=== PATIENT | male | born 1930 | race Caucasian/White ===

== ENCOUNTER 2018-08-27 20:17 | Inpatient (IN) | payer OTHER, BC ==
[~2018-08-27] VITALS: Ht 180.3 cm; Wt 60.3 kg
[~2018-08-27 20:17] MED LIST: ASPIR 8181 MG PO; ATORVASTATIN CA40 MG PO; BRILINTA90 MG PO; CARVEDILOL3.125 MG PO; CENTRUM SILVER1 EAC2 PO; CITRATE OF MAG296 M1 PO; FISH OIL 1,001000 M2 PO; PLAVIX 75 MG TA75 MG PO; UNICOMPLEX M TA1 TA1 PO; VITAMIN D3400 UNI1 PO
[2018-08-27 20:19] VITALS: BP 112/63
[2018-08-27] MEDS ORDERED: PAXIL10 MG PO (20:36)
[2018-08-27 21:01] LABS: ABSOLUTE NEUTROPHILS 3.5 thou/uL (1.4-8.2); BASOPHILS 0.6 % (0.0-2.0); EOSINOPHILS 2.7 % (0.0-3.0); HEMATOCRIT 36.7 % (42.0-52.0); HEMOGLOBIN 12.2 gm/dL (14.0-18.0); LYMPHOCYTES 29.4 % (24.0-44.0); MCH 28.3 pg (26.0-34.0); MCHC 33.3 g/dL (28.0-37.0); MCV 85.1 fL (80.0-100.0); MONOCYTES 9.3 % (1.0-8.0); PLATELET COUNT 208 thou/uL (150-400); RBC 4.32 mil/uL (4.50-6.00); RDW 15.8 % (10.5-14.5); WBC 6.1 thou/uL (4.0-11.0)
[2018-08-27 21:05] LABS: CALCIUM 9.1 mg/dL (8.5-10.1)
[2018-08-27 21:12] LABS: ALBUMIN 3.6 g/dL (3.4-5.0); TOTAL BILIRUBIN 0.5 mg/dL (<0.1-1.0); TOTAL PROTEIN 7.1 g/dL (6.4-8.2)
[2018-08-27 21:42] LABS: URINE BILIRUBIN NEGATIVE (Negative); URINE BLOOD NEGATIVE (Negative); URINE CLARITY CLEAR; URINE COLOR YELLOW; URINE GLUCOSE-RANDOM* NEGATIVE (Negative); URINE KETONES TRACE (Negative); URINE LEUKOCYTES-REFLEX NEGATIVE (Negative); URINE NITRITE-REFLEX NEGATIVE (Negative); URINE PROTEIN (DIPSTICK) NEGATIVE (Negative); URINE SPECIFIC GRAVITY 1.025 (1.005-1.035)
[2018-08-27 22:32] VITALS: BP 107/61
[2018-08-27 23:01] VITALS: BP 133/72
--- NOTE | 2018-08-28 00:51 | NUR ---
ARRIVED ON THE FLOOR FROM ED @ 23:15. ADMISSION AND ASSESSMENT COMPLETE. VSS HEART RRR LUNGS CTA, BOWEL SOUNDS NORMOACTIVE. FAMILY STATES THAT PT CAN SPEAK AND WRITE, BUT HE REFUSES TO TALK OR SIGN ADMISSION PAPERWORK. THE FEW WORDS HE SAYS ARE IN A WHISPER. DENIES PAIN.
[2018-08-28 04:26] VITALS: BP 123/61
[2018-08-28 07:35] VITALS: BP 114/63
--- NOTE | 2018-08-28 10:18 | NUR ---
ASSUMED CARE THIS AM, SHIFT ASSESSMENT DONE, MEDS GIVEN, VSS. DENIES ANY PAIN, NAUSEA. DID NOT EAT BREAKFAST. ATE SOME JUICE. FAMILY AT BEDSIDE. DISCHARGE ORDERS RECEIVED. ATTEMPTED TO CALL REPORT AT 1015, NURSE WAS IN A MEETING, ASKED TO CALL BACK. WILL CONTINUE TO ASSESS AND ASSIST WITH ADLs NEEDED.
[2018-08-28 10:31] LABS: TSH 2.299 uIU/mL (0.358-3.740)
[2018-08-28 14:30] VITALS: BP 120/65
--- NOTE | 2018-08-28 14:54 | NUR ---
PATIENT ADMITTED TO ROOM 526, ORDERS DR. KIM, FOR DEPRESSION, HALLICUNATIONS. NO HISTORY OF AGGRESSION, PER SON, LAUREN, CURTIS. SISTER, CHRISTOPHER BLANKENSHIP, IS CO-DPOA. PATIENT HAS NO SKIN BREAKDOWN, NO EVIDENCE OF PRESSURE SORES, NO OTHER SKIN. SON ASSISTED WITH HEALTH CARE QQUESTIONS. PATIENT HAS NOT BEEN DEPRESSED UNTIL AROUND June, HIS BIRTHDAY. BECAME DEPRESSED. BEHAVIOR IS TOTAL BIZARRE, PER SON. PATIENT HAS RECENTLY BEING SAYING "I'M ," NOT STATING THAT HE WANTS TO HURT HIMSELF OR KILL HERSELF. PATIENT WAS FORMERLY ON 4TH FLOOR, ROOM 423 PRIOR TO ADMISSION ON [facility]. PATIENT HAS LOST 23 POUNDS, 10 POUNDS OF THAT WITHIN THE LAST WEEK. HAS NOT BEEN EATING VERY MUCH, NO MEALS YESTERDAY. SON HAD TO FEED HIS MEAT FROM LUNCH TODAY, WHICH IS MOSTLY WHAT HE HAS EATEN TODAY. SON PROVIDED COPIES OF DPOA DOCUMENTS, WELL ADVANCED DIRECTIVE. COPIES PLACED IN CHART.
[2018-08-28 21:08] VITALS: BP 105/67
--- NOTE | 2018-08-29 04:00 | NUR ---
PT OUT IN DAY AREA BEGINNING OF EVENING. WATCHED TV. DENIES SELF HARM THOUGHTS TO THIS RN. ABLE TO EAT CARTON OF ICE CREAM WITH ENCOURAGMENT. ASSISTED TO BED SLEPT WELL THROUGH THE NIGHT. BLUNTED AFFECT AND DEPRESSED MOOD.
[2018-08-29 09:21] VITALS: BP 115/66
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
--- NOTE | 2018-08-29 18:13 | NUR ---
PT. ON THE UNIT MUCH OF TODAY. HE SITS STARING AT THE FLOOR, FLAT AFFECT, MOOD SULLEN. HE ATE MOST OF BREAKFAST, BUT ONLY 1/4 LUNCH AND DINNER. HE WILL NOT EAT UNLESS STAFF ASSIST HIM TO EAT. HE SHOWERED TODAY, PUT ON CLEAN SCRUBS, SOX, BUT REFUSED TO PUT ON HIS CLOTHES OR SHAVE. SON VISITED TODAY. HE DID TALK TO THIS RN TODAY ABOUT HOW HE FELT HE IS FAILURE TO HIS CHILDREN (ONE BOY AND 2 GIRLS). HE JUST BELIEVES HIS PURPOSE HERE ON EARTH IS DONE CURRENTLY. HE STATES HE IS NOT EATING BECAUSE HE BELIEVES IT IS A WASTE OF FOOD.
[2018-08-29 19:20] VITALS: BP 116/73
--- NOTE | 2018-08-30 01:26 | NUR ---
ASSUMED CARE OF THE PATIENT AT 2000 PM. WALKS AROUND HIS BEDROOM, AND SITS ON THE TOILET SEAT IN HIS BATHROOM, WITHOUT GOING TO THE BATHROOM. HAS A FLAT AFFECT. FINALLY WENT TO SLEEP AROUND 100 AM, AFTER THIS NURSE AND OTHER STAFF CHECKED ON HIM EVERY 12 MINUTES. CONTINUES ON 12 MINUTE CHECKS.
--- NOTE | 2018-08-30 05:50 | NUR ---
THE PATIENT DID SLEEP 4.4 HOURS LAST NIGHT, HE DID GET UP WHEN HIS BED ALARM WENT OFF. HE HAS BEEN STANDING IN THE HALLWAY AND IN HIS ROOM. CURRENTLY HE IS IN HIS ROOM. DENIES PAIN AT THIS TIME.
[2018-08-30 07:24] VITALS: BP 109/50
--- NOTE | 2018-08-30 08:40 | NUR ---
PT IS ALERT TO SELF, BDATE, HOW LONG HE'S BEEN AND KIDS. STATES HE DOESN'T KNOW WHERE HIS SPOUSE IS CURRENTLY, TOLD HIM BY THE END OF THE SHIFT I'D FIND OUT. WALKS VERY SLOWLY W/STAFF, TALKS QUIETLY AND MINIMALLY, SEEMS TO NOT GIVE ANY EYE CONTACT. ENCOURAGED HIM THAT WE'D SHOWER HIM AND HELP DRESS HIM LATER IF HE'D LIKE. EATS 25-50% OF THE MEAL SLOWLY AND COUGHS THROUGHOUT, WILL MONITOR AND SHARE WITH PHYSICIAN
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
--- NOTE | 2018-08-30 10:05 | NUR ---
CALLED LAUREN, SON, TO ASK WHERE SPOUSE WAS SO POSSIBLY PT AND COULD VISIT, HE WAS HEADED TO [facility] AND SAID HE'D CALL LATER SO THEY COULD TALK ON PHONE. HE'S SPEAKING TO SON CURRENTLY.
--- NOTE | 2018-08-30 11:40 | NUR ---
I was informed Didier's family was upset with me. I made my amends. They said it was ok. They brought in clothing for Didier. The equal opportunity director is inventoring all of his belongings as this was not done upon admission. Some items will be sent back with the family. They understood that we have limited space to keep personal belongings. The family was agreeable for staff to launder the pt's clothing.
[2018-08-30 20:29] VITALS: BP 123/80
--- NOTE | 2018-08-30 22:39 | NUR ---
ASSUMED CARE OF THE PATIENT AT 2000 PM. THE PATIENT HAS BEEN SITTING IN THE DINING ROOM WATCHING HIS FOOD, REFUSED TO EAT OR DRINK ANYTHING IN THE WAY OF A SNACK. THE PATIENT REFUSED TO GO TO BED THIS EVENING, WE WERE ABLE TO REDIRECT THE PATIENT SO THAT HE WOULD GO TO BED, AT THIS TIME HE IS ASLEEP.
--- NOTE | 2018-08-31 04:51 | NUR ---
CONTINUES TO SLEEP IN HIS BED. NO ISSUES NOTED AT THIS TIME.
--- NOTE | 2018-08-31 06:35 | NUR ---
THE PT SLEPT 7.0 HOURS LAST NIGHT.
[2018-08-31 07:45] VITALS: BP 104/54
[2018-08-31 08:00] VITALS: BP 104/54
--- NOTE | 2018-08-31 08:15 | NUR ---
CLIENT UP TO BATHROOM THIS AM, UNABLE TO VOID AT THIS TIME. CLIENT WALKING IN ROOM WITH GAIT BELT AND WALKER. CLIENT STATED HE WANTED TO GO BACK TO BED. REFUSED TO EAT BREAKFAST.
--- NOTE | 2018-08-31 09:57 | NUR ---
PROMOTIONS EXECUTIVE GAVE CLIENT A SHAVE, CLIENT UNABLE TO RAISE HIS HEAD UP AND HELP WITH SHAVE.
--- NOTE | 2018-08-31 12:00 | NUR ---
CLIENT HERE WITH SON, REFUSING TO EAT. CLIENT DRANK 60ML OF ENSURE TO DRINK. REFUSING WATER.
[2018-08-31 12:11] LABS: CALCIUM 9.4 mg/dL (8.5-10.1); CREATININE 1.1 mg/dL (0.7-1.3); POTASSIUM 4.1 mmol/L (3.5-5.1)
--- NOTE | 2018-08-31 13:15 | NUR ---
AFTER SON LEFT, CLIENT URINATED ON FLOOR, STATED ITS NO USE WE ARE ALL .
--- NOTE | 2018-08-31 17:42 | NUR ---
CLIENT LYING IN BED DIDN'T WANT TO COME OUT TO EAT DINNER.
[2018-08-31 20:15] VITALS: BP 109/56
--- NOTE | 2018-09-01 03:27 | NUR ---
PT IN BED AT [facility] OF SHIFT. REFUSED TO COME OUT OF ROOM AT THAT TIME. FINALLY GOT HIM UP AFTER HE WAS INCONTINENT. LINEN AND CLOTHES CHANGED AND ESCORTED HIM TO DAY AREA. CONTINUES TO RUMINATE THAT "WE ARE ALL " DEPRESSED AND REFUSES TO COMMUNICATE. DID EAT VANILLA ICE CREAM WITH ENCOURAGMENT. TOOK MEDS PRESCRIBED. ESCORTED TO REST ROOM WHERE HE WAS ABLE TO URINATE ON HIS OWN. RETURNED TO BED. SLEPT WELL THROUGH THE NIGHT.
[2018-09-01 07:35] VITALS: BP 94/50
--- NOTE | 2018-09-01 17:13 | NUR ---
Pt refused group therapy, and became emotional. Pt stated that he just want to go home, and see his .
--- NOTE | 2018-09-01 17:38 | NUR ---
PT. IN BED WHEN THIS RN ASSUMED CARE AT 0715. HE GOT UP FOR BREAKFAST AND SAT ON THE UNIT UNTIL LUNCH. BOTH MEALS HE AT OVER 50% BUT NEEDED TO BE FED BY STAFF. HE WILL NOT FEED HIMSELF. AFTER LUNCH HE WAS LAYED BACK IN BED FOR A REST. FAMILY CAME TO SEE PT. AT 4 PM AND BROUGHT A CHILD ABOUT THE AGE OF 12 WITH THEM. THE WANTED TO BRING THE CHILD IN OR WANTED PT. TO COME OUT TO SEE HIM. WE EXPLAINED WHY NEITHER WOULD BE GOOD. FAMILY UPSET AND STARTED TALKING ABOUT GETTING DAD OUT OF HERE. DR. KIM INFORMED OF THEM BEING UPSET AND STATED IF THEY SIGN HIM AMA TO LET HIM KNOW. THE FAMILY DID NOT DO SO. THEY DID ATTEMPT TO FEED HIM SUPPER AND SAW HOW HE WAS WITH MEALS. HE REFUSED A SHOWER TODAY AND HAS ONLY BEEN IN THE RESTROOM TIMES 1 TODAY. HE CONTINUES TO TALK IN A LOW TONE AND VOLUME (WHISPER), AND IS BARELY AUDIBLE. NO S/S AH/VH/HI. SI IS NOTED EVIDENCED BY REFUSAL TO EAT OR CARE FOR HIMSELF. HE VERBALIZED HE THOUGHT THE WORLD WOULD BE BETTER OFF WITHOUT HIM. HE DID NOT REPORT A BM TODAY.
[2018-09-01 19:21] VITALS: BP 114/72
--- NOTE | 2018-09-02 03:12 | NUR ---
PT IN BED THIS PM. REFUSING TO COME OUT FOR SNACKS. ASSESSMENT, DEPRESSED AND VIRTUALLY NON VERBAL. UP TO BR THEN BACK TO BED. TOOK HS MEDS WITH ENCOURAGEMENT. SLEPT WELL.
[2018-09-02 07:34] VITALS: BP 108/69
[2018-09-02 07:43] VITALS: BP 108/69
--- NOTE | 2018-09-02 09:28 | NUR ---
REQUIRES ENCOURAGEMENT TO AMBULATE TO COMMON AREA FOR BREAKFAST WITH ASSIST, WALKER AND GAIT BELT. RETROVERTS. PROMPTING NEEDED. TRAY SET UP AND HE FED HIMSELF 100% OF BREAKFAST. IT APPEARS TRYING TO FEED HIM INSTEAD MAY BE COUNTERPRODUCTIVE. AFFECT REMAINS VERY FLAT; ELICITING A RESPONSE TO QUESTIONS ALL BUT IMPOSSIBLE. WILL CONTINUE TO MONITOR.
--- NOTE | 2018-09-02 14:50 | NUR ---
LONG MEETING WITH PATIENT, FAMILY MEMBERS, AND DR. PAVON, WHO LAID OUT THE OPTIONS FOR HIS CARE GOING FORWARD. PATIENT REFUSED TO EAT LUNCH BUT HAS REMAINED IN COMMON AREA FOR THERAPY. ASSISTED FOR BR TO VOID AND BM. WILL CONTINUE TO MONITOR.
--- NOTE | 2018-09-02 18:37 | NUR ---
IF NURSING STAFF AND FAMILY QUIT BADGERING HIM ABOUT HIS ORAL INTAKE AND LEAVE HIM ALONE HE WILL FEED HIMSELF AND GRADUALLY EAT 100% OF HIS MEALS. TO DO OTHERWISE HAS PROVEN COUNTERPRODUCTIVE TODAY.
[2018-09-02 19:27] VITALS: BP 99/67
--- NOTE | 2018-09-02 20:28 | NUR ---
ASSUMED CARE OF THE PATIENT AT 2000 PM. ALERT ET ORIENTED X 2. PERSON AND PLACE. TALKS VERY SOFTLY. CONTINUES TO HAVE A FLAT AFFECT. DENIES SI,HI, A/V HALLUNICATIONS. DENIES PAIN, ANXIETY AND DEPRESSION. IT WAS REPORTED TO THIS SYSTEMS ADMINISTRATOR, IF THE PATIENT IS LEFT ALONE HE WILL EAT HIS MEALS, HOWEVER, THIS EVENING HE WOULD NOT EAT HIS HS SNACK, BUT HE DID TAKE HIS PILLS ORDERED. REMAINS ON 12 MINUTE CHECKS.
--- NOTE | 2018-09-03 02:16 | NUR ---
THE PT IS LYING IN BED WITH HIS EYES OPEN. APPEARS TO BE RESTING COMFORTABLY AT THIS TIME.
--- NOTE | 2018-09-03 03:29 | NUR ---
THE BILINGUAL NANNY WAS WALKING BY THE PATIENT'S ROOM AND HE WAS OUT OF BED WALKING AROUND IN HIS ROOM. WE ASSISTED HIM TO THE BATHROOM, WHERE HE VOIDED, AND THEN BROUGHT HIM TO THE DAYROOM, HE STATED THAT HE DID NOT WANT TO GO BACK TO BED.
[2018-09-03 07:20] VITALS: BP 95/61
--- NOTE | 2018-09-03 10:53 | NUR ---
PATIENT HAS BEEN UP AND OUT SITTING IN DAY ROOM WHEN CARE ASSUMED. HE FED SELF BREAKFAST, COMSUMED 100%. PATIENT TOOK MORNING MEDICATION WITHOUT DIFFICULTY. PATIENT APPEAR TO BE DELISIONAL TODAY, STAFF REPORTS THAT PATIENTS STATES "THE BUILDING IS SHRINKING". PHYSICAL THERAPY STAFF REPORTS THAT WHILE WALKING WITH PATIENT, HE WAS AFRAID, WHEN THEY ATTEMPTED TO ENTER HIS ROOM. SHE STATES THAT PATIENT DIDN'T WANT TO GO INTO HIS ROOM, THOUGHT THE ROOM BELONGS TO ANOTHER PERSONS. AND THAT THE PERSON IS GOING TO BE MAD AT HIM FOR MAKING A MESS IN HIS ROOM. PATIENT DENIES SUICIDAL AND HOMOCIDAL IDEATION. HE RATED ANXIETY 8/10, DEPRESSION 6/10. PATIENT HAD BOWEL MOVEMENT THIS MORNING. PATIENT STATES HIS GOAL TODAY IS TO GET BACK WITH HIS FAMILY. HE DENIES HAVING PHYSICAL PAIN, AFFECT REMAIN FLAT, MOOD HOPELESS, WILL CONTINUE TO ENCOURAGE FLUID, AND MONITOR FOR SAFETY.
[2018-09-03 19:46] VITALS: BP 111/60
--- NOTE | 2018-09-03 22:40 | NUR ---
ASSUMED CARE OF THE PATIENT AT 2000 PM. ALERT ET ORIENTED X 2, TO PERSON AND PLACE. WALKS WITH A WALKER AND WITH THE ASSISTANCE OF 1. DENIES SI AND HI, ANXIETY, AND DEPRESSION. CONTINUES TO HAVE A FLAT AFFECT. TALKS WITH A REAL SOFT VOICE.
--- NOTE | 2018-09-04 03:53 | NUR ---
THE ALARM ON THE PT'S BED WENT OFF AND THIS TRAINING SPECIALIST WENT TO HIS ROOM, HE NEEDED TO VOID AND THEN WAS ASSISTED TO THE DAYROOM, HE DID NOT WANT TO GO BACK TO BED.
--- NOTE | 2018-09-04 14:31 | NUR ---
ASSUMED PT CARE AT 0720, ALERT AND ORIENTED TO SELF. NO SI OR HI. PT DOES HAVE DELUSIONS. PT DOES NOT HAVE A STEADY GAIT, WHEN AMBULATING WITH WALKER PT STARTS TO LOOSE BALANCE BACKWARDS, HAS NOT FALLEN OF YET TODAY.FAMILY HAS VISITED PT TODAY. WILL CONT. TO MONITOR.
[2018-09-04 17:59] VITALS: BP 117/70
[2018-09-04 19:42] VITALS: BP 103/62
[2018-09-05 02:31] VITALS: BP 120/69
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
[2018-09-05 05:50] VITALS: BP 92/49
--- NOTE | 2018-09-05 10:32 | NUR ---
SUKI spoke with Swapnil ACEVEDO of th pt concerning his acceptance into there SNF. SUKI stated that according to Vilma at [facility] that pt is an elopment risk, and the faciility in unable to care for him. Swapnil stated he was told by Dagmar that there is a note that states he is an elopment risk. SUKI spoke with Meka nurse environmental conflict manager, and there was no note that indicated this behavior. Meka will follow-up with Swapnil.
--- NOTE | 2018-09-05 10:44 | NUR ---
Our SW worker informed that [facility] mannor came to assess Didier, they are not willing to admit him to due he is an elopment risk. I reviewed the nursing note there is no documentation that I have found stating Didier has tried to elope. I called Didier's son and explained to him my findings. He thanked me for this information.
--- NOTE | 2018-09-05 11:16 | NUR ---
PATIENT QUIET AND AGREEABLE. ATE 25% OF BREAKFAST. WAS NOT RECEPTIVE TO EATING AND NEEDED ALOT OF ENCOURAGEMENT. TOOK MEDICATIONS WITHOUT INCIDENCE. AFFECT FLAT ANDL MOOD DETACHED AND SULLEN. COMPLAINED OF SOME DISCOMFORT ON LEFT ELBOW - SLIGHT ABRASION - PATIENT SPOKE TO SOON ON PHONE. STAFF CALLED AND LEFT MESSAGE FOR FAMILY THIS MORNING TO ADVISED OF FALL PATIENT HAD TAKEN. NO INJURY OR PAIN REPORTED BY PATIENT WHEN ASSESSED.
[2018-09-05 19:00] VITALS: BP 104/60
[2018-09-06 02:16] VITALS: BP 104/60
--- NOTE | 2018-09-06 03:13 | NUR ---
PT UP IN DAY AREA EARLY IN SHIFT. REFUSED EVENING SNACK. AFFECT BLUNTED, AND SOMEWHAT SURLY. WEAK, AND NEEDED ASSIST WITH WALKER TO ROOM AND REST ROOM. REFUSED HS MEDS, EVEN AFTER SEVERAL ENTREATIES. SLEPT OFF AND ON. EVERY LITTLE MOVEMENT SETS OFF ALARM AND AWAKENS HIM. 2 HR CHECKS FOR BR. SLEPT INTERMITTANTLY THROUGH THE NIGHT.
[2018-09-06 07:20] VITALS: BP 103/63
--- NOTE | 2018-09-06 08:36 | NUR ---
PT IS ALERT TO SELF, HOW MANY CHILDREN HE HAS, HOW MANY YEARS , TURN HEAD AWAY FROM PILLS BUT WHEN CONTINUING TOWARD HIS MOUTH HE OPENS TAKES W/APPLESAUCE THEN JUICE. HAS SOME TREMORS IS MAINTAINING SOME EYE CONTACT. UNSTEADY GAIT W/SBA AND W/C. ENCOURAGED HIM AND OTHER STAFF TO KEEP AN EYE OUT WHEN HE'S WANTING TO AMBULATE SO WE CAN BE NEARBY. WILL FIND HIS ANTONIO AND BRING OUT TO THE DINING ROOM TABLE SO HE CAN LET US KNOW HIS NEEDS HE COMMUNICATES MINIMAL
--- NOTE | 2018-09-06 10:49 | NUR ---
CAIT SEEMS TO BE ACTING OUTSOMETHING WITH HAND MOTIONS AND SHAKING HIS HEAD, INTERMITTENTLY, WHEN ASKED IF HE NEEDS ANYTHING, HE STATES IT DOESN'T MATTER. DECLINES ANY DRINKS/SNACKS. GAVE HIM WATER IN CASE HE CHANGES HIS MIND.
--- NOTE | 2018-09-06 11:06 | NUR ---
Recreational Therapy Progress Note Date of Admission: 08/28/18 Date of Activity Therapy Assessment: 08/30/2018 Activity Goal: 1 group per day. 1:1 if refused Initial Goal: Exhibit knowledge of 2 self/care coping skills before d/c. Weekly progress towards goal: Did not achieve goals Group participation level: Improving Behaviors observed: Soft spoken, ocassional comments of hopelessness, beginning to interact appropriately with pts in milieu. Plan: No change towards goal
--- NOTE | 2018-09-06 14:22 | NUR ---
PT SHIFTING BACK AND FORTH AND SEEMS TO BE IN PAIN ON HIS BOTTOM, AIDE AND I TOOK HIM TO THE RESTROOM AFTER HIS WALK, AND HE HAD A BM AND SKIN ISSUE NOTED INSIDE LEFT BUTTOCK, CLEANED UP HIS BOTTOM AND PLACED OPTIFOAM, WILL ASK FOR WOUND CONSULT, PLACED PILLOW ON HIS CHAIR FOR COMFORT
--- NOTE | 2018-09-06 17:28 | NUR ---
PT TAKING A NAP AND VERY RESISTANT TO TWO MEMBERS OF STAFF GETTING HIM UP OUT OF BED TO COME TO DINNER. SET DINNER ASIDE. BED ALARM SET, WILL LET NOC STAFF KNOW IN CASE HE'S HUNGRY AND THAT HE TAKES HIS PILLS IN APPLESAUCE EVEN THOUGH HE'LL TURN HIS HEAD AWAY, HE'LL ALLOW IT AFTER A FEW SECONDS
[2018-09-06 20:10] VITALS: BP 110/61
--- NOTE | 2018-09-07 01:31 | NUR ---
PT WAS OBSERVED SLEEPING ON HIS BED IN ROOM AT THE START OF SHIFT.PT REFUSED TO TALKE HIS HS MEDS,REF ALL THE PO FLUIDS OFFERED.FREQUENT CHECKS IN PLACE.SILVADENE CREAM TO HIS BUTTOCK COVERED WITH 4X4 AND TAPE.BED IN LOW POSITION.REPOSITIONED IN BED BUT GOES BACK TO HIS L SIDE EACH TIME.WILL CONT TO MONITOR.
[2018-09-07 07:52] VITALS: BP 127/77
[2018-09-07 12:08] VITALS: BP 127/77
--- NOTE | 2018-09-07 15:38 | NUR ---
PT. AWAKE IN BED WHEN THIS RN CAME ON DUTY AT 0715. HE WAS BROUGHT TO THE DINING ROOM FOR BREAKFAST. INITIALLY HE WOULD NOT EAT BY HIMSELF BUT AFTER SITTING FOR ABOUT 30 MINUTES, HE FED HIMSELF ABOUT 1/2 BREAKFAST BY HIMSELF. PT. WAS GIVEN A SHOWER, BED CHANGED THIS MORNING. FAMILY VISITED TODAY AND QUESTIONED THAT THE SEEMED WORSE TODAY AND WANTED TO KNOW IF HIS MEDICATION DOSAGE IS TOO HIGH. THIS VISUAL MERCHANDISING COORDINATOR STATED SHE WOULD ASK THE DR. AND ALLOW HIM TO DECIDE IF THE DOSAGES NEEDED TO BE CHANGED. PT. HAD BM TODAY.
[2018-09-07 21:42] VITALS: BP 101/64
--- NOTE | 2018-09-07 21:56 | NUR ---
ASSUMED CARE OF THE PATIENT AT 2000 PM. THE PT WAS SITTING AT THE TABLE WHILE HE WAS IN THE DAYROOM. HE ATE HIS SNACK AND DRANK FLUIDS. HE TOOK HIS MEDICATIONS WITHOUT ANY DIFFICULTY. ASSISTED THE PATIENT TO HIS ROOM WITH THE ASSISTANCE OF TWO, HE VOIDED AND THEN WE ASSISTED HIM TO BED. HE SPEAKS SOFTLY. DENIES SI AND HI. DENIES A/V HALLUNICATIONS, DENIES ANXIETY AND DEPRESSION. WALKS WITH A STEADY GAIT. CONTINUES ON 12 MINUTE CHECKS FOR HIS SAFETY.
--- NOTE | 2018-09-08 06:02 | NUR ---
THE PT SLEPT 10:00 HOURS LAST NIGHT.
--- NOTE | 2018-09-08 07:11 | NUR ---
REPORT GIVEN TO ONCOMMING NURSE, STILL IN BED, SLEPT 10 HOURS.
--- NOTE | 2018-09-08 09:34 | NUR ---
SUKI faxed over packet of information to [facility] [phone]. Called @[phone] confirmed it was recieved.
[2018-09-08 12:27] VITALS: BP 101/64
[2018-09-08 13:14] VITALS: BP 101/64
--- NOTE | 2018-09-08 13:45 | NUR ---
ASSUMED CARE AT 0715 THIS MORNING. PT. COOPERATIVE WITH STAFF. HE CONTINUES TO SHOW S/S DEPRESSION EVIDENCED BY LITTLE TO NO EYE CONTACT, SITTING QUIETLY STARING AT THE FLOOR, NOT INITIATION ANY CONVERSATION OR CARE OF HIMSELF. WAS BROUGHT TO THE DINING ROOM THIS MORNING. HE ATE MOST OF BREAKFAST. HE WAS TAKEN TO THE BATHROOM Q 2 HOURS BY STAFF. HE EVEN ITITIATED TO STAFF TIMES ONE THAT HE NEEDED TO USE THE BATHROOM. FAMILY HERE FOR MORNING VISITATION. THEY VERBALIZED CONCERN THAT THE PT. IS ON MORNING AND EVENING DOSE OF OLANZAPINE (7.5 AT HS, 2.5 IN AM). THE FAMILY EXPRESSED CONCERN THAT THE MORNING DOSE HAS NOT BEEN DISCONTINUED AND THAT POSSIBLY HE IS ON TOO MUCH OLANZAPINE. DOMINGO ANGEL NOTIFIFED. HE STATED HE WOULD CALL DR. KIM ABOUT THIS CONCERN AND THEN RETURN TO THIS RN. NO CALL HAS BEEN RECEIVED ABOUT THIS OF THIS WRITING. PHONE NUMBERS FOR FAMILY RECEIVED IN EVENT STANLEY LO RETURNS A CALL. PT. FED HIMSELF MOST OF HIS LUNCH AND TRIED TO INTERACT WITH HIS FAMILY. HE COMPLAINED OF HIS BOTTOM HURTING. AFTER LUNCH PT. WAS TAKEN TO HIS ROOM, SILVADINE APPLIED TO HIS BOTTOM AND HE WAS ASKED TO LAY ON HIS SIDE FOR A PERIOD OF TIME. HE STATED HE WOULD DO SO.
[2018-09-08 19:30] VITALS: BP 143/67
--- NOTE | 2018-09-08 21:21 | HC ---
[facility] [place] [address] CONSULTATION Name: CAIT BAKER Room #: 526B-B ADM IN M.R.#: [id number] Admission: 08/28/18 ������������������ Attend Phys: Espinoza Rodriguez DO Discharge: ������������������ Date of : 32 Report #: [id number] THIS REPORT FOR: //name// CC: Espinoza Rodriguez Jaidabrianna Raymundo DATE OF SERVICE: 09/02/2018 PALLIATIVE CARE CONSULTATION: REQUESTING PHYSICIAN: Dr. Copeland. CHIEF COMPLAINT: Depression. HISTORY OF PRESENT ILLNESS: The patient is an 88-year-old male who presented initially to the hospital for severe depressive symptoms with possibly psychosis features. The patient has been on Paxil for months now with unfortunately no improvement in his symptoms. He has a history of depression, worsening in June. His has been diagnosed with Alzheimer's approximately 3 years prior. The patient has been primary caregiver. Unfortunately, spouse had a fall resulting in hip fracture recently and she is at [facility] receiving rehab at that facility after a surgery to repair. He has lost approximately 10 pounds in 2 weeks, had no appetite, decreased communication, decreased mobility and subsequently has said, "I just want to " prompting again his presentation to the hospital. The patient has been under the care of Dr. Copeland here after one day of original admission to the hospital. He has been changed to Remeron, trazodone, and Zyprexa as well as a couple of doses of Ritalin. He has had some improvement today per his family's report. The patient admits this as well. The patient is far more communicative and mobile than he had been previously whereas he previously would not even work with physical therapy. The patient additionally had anxiety and paranoia per family's report. The patient additionally has had some difficulty with his movement overall. He has been noted to have a fall at home. Additionally, on questioning has been noted to have anosmia and difficulty with his taste. This may have been going on past this last 3 months. He does notice a short stepped gait pattern. PAST MEDICAL HISTORY: Coronary artery disease. He has also had stents x 3 for this. He is a former smoker. He has had severe depression, history of insomnia as well. PAST SURGICAL HISTORY: Stents x 3, hernia repair in 1999. SOCIAL HISTORY: Former smoker, quit in 1954. He has a son and daughter who are present at my interview. He has a power of attorney general enacted who is the son. MEDICATIONS: Trazodone, Zyprexa, mirtazapine. [address] [address] CONSULTATION Name: CAIT BAKER Sylwia Room #: 526B-B [facility] IN ..#: [id number] Admission: 08/28/18 ������������������ Attend Phys: Espinoza Rodriguez DO Discharge: ������������������ Date of : 32 Report #: [id number] ALLERGIES: No known drug allergies. REVIEW OF SYSTEMS: Difficult to obtain due to his poor communication status at this time, but he does admit to weight loss. CARDIOVASCULAR: Denies chest pain. RESPIRATORY: Denies shortness of breath. ABDOMEN: Denies nausea or vomiting. He does report that he is having possibly frequent stools, but it is difficult to say at this time. GENITOURINARY: Denies dysuria. MUSCULOSKELETAL: Does report a shortened gait pattern as discussed in HPI. PHYSICAL EXAMINATION: VITAL SIGNS: Reviewed and stable currently. GENERAL: The patient appears to be alert currently. His attention level appears to be intact, although he is slow to respond. HEENT: Extraocular muscles are intact. CARDIOVASCULAR: Regular rate and rhythm without murmur. LUNGS: Clear to auscultation bilaterally. No wheezes, rales or rhonchi. ABDOMEN: Soft, nontender to palpation x 4, positive bowel sounds in all 4 quadrants. NEUROLOGIC: Today without significant cogwheeling or rigidity. He does have some shuffled gait based on what I am seeing today and he has a left lower extremity limp that is slight. The patient is able to rise from the seated position, though he is slowed in this. He does have a slightly retropulse of gait pattern at this current point in time. [id number]-[id number] and Romberg testing were negative. LABORATORY DATA: Include creatinine 1.0. CBC normal. Urinalysis negative. ASSESSMENT AND PLAN: 1. Depression, severe with psychosis, likely, although he denies current psychotic symptoms. He may have had this in the past according to family. He appears to be improving with his regimen currently. I have discussed the plan that Dr. Copeland has had and family is amenable to this at this time and would prefer medication to ECT, but I did discuss that extensively and its efficacy when used in patients of his type and that would be a good option going forward. They did not wish at this time to pursue any kind of hospice and I agree with this. I do think the patient needs additional time in treatment prior for pursuing anything such as this and the patient would likely benefit from rehab stay due to his weakness overall. The patient is wanting to go to [facility] where his is present when he is ready for discharge. Again discussed with both the family, with case management staff and with Dr. Copeland today. 2. Possible movement disorder. Would like to reexamine on Sunday with continued improvement in symptoms. Certainly, it could take some time before [facility] [address] [place] [address] CONSULTATION Name: SAMUELCAIT L Room #: 526B-B ADM IN M.R.#: [id number] Admission: 08/28/18 ������������������ Attend Phys: Espinoza Rodriguez DO Discharge: ������������������ Date of : 32 Report #: [id number] any of his symptoms improve enough to decide whether or not any movement disorder is present, he is not typical case for parkinsonian traits at this time, though, so I would like to rather treat his progression to more significant level before any diagnosis, possible Neurology consultation in the future. Thank you very much for this consultation. ��������������������������������������������� <ELECTRONICALLY SIGNED> ���������������������������������������� By: Danilo Horner DO ��������������������������������������������� 09/08/18 [id number] Danilo Horner DO /nt
--- NOTE | 2018-09-08 23:54 | NUR ---
RECEIVED REPORT FROM OFFGOING NURSE. ASSUMED CARE @ 19:15, SITTING IN DAY ROOM. FLAT AFFECT, ORIENTED TO SELF ONLY. DEPRESSION AND DROUSINESS NOTED EVIDENCED BY HANGING HEAD WHEN SITTING AT TABLE, RETIRING TO BED IMMEDIATLY AFTER SNACKS. SON, LAUREN CALLED AND ASKED TO SPEAK TO PT, WHO WAS ASLEEP AND COULD NOT BE AWAKENED. LAUREN ASKED WHEN HIS DAD WOULD BE RELEASED. I REFERRED HIM TO THE PHYSICIAN THE DECISION MAKER AND THE STOCK CLERK SELF SERVICE STORE THE COORDINATOR FOR THE FACILITY HE WILL BE GOING TO ON DISCHARGE. SON STATED THAT HE KNEW THE STOCK CLERK SELF SERVICE STORE AND PHYSICIAN WOULD NOT BE DISCHARGING THE PT ON THE WEEKEND, AND THAT NOTHING WOULD BE DONE ON THE WEEKEND, WHEN OFFERED THE [employer] HELPER PHONE NUMBER HE STATED THAT HE ALREADY HAD IT. WILL CONTINUE TO MONITOR.
--- NOTE | 2018-09-09 06:43 | NUR ---
SLEPT FOR 11 HOURS. STILL IN BED AT THIS WRITING.
[2018-09-09 07:07] VITALS: BP 100/54
[2018-09-09 11:38] VITALS: BP 143/67
--- NOTE | 2018-09-09 14:11 | NUR ---
Follow up: intake 50-100% of meals. Still needs encouragement at times. No new wt to assess. Continue to offer supplements. Change nutrition status to low risk
--- NOTE | 2018-09-09 17:04 | NUR ---
SUKI met with pt son Swapnil concerning eye glasses. Swapnil stated that he brought the glasses, and it was there on last week. SUKI confirmed that pt did have eye glasses. SUKI stated that if he can send the picture then we will try our best to replace. SUKI gave personal number to text information. SUKI will follow-up with pt son upon discharge.
--- NOTE | 2018-09-09 18:15 | NUR ---
PT. IN BED WHEN THIS [employer] OUTSE[employer]ER ASSUMED CARE AT 0715. HE CAME TO THE UNIT TO EAT HIS MEALS. HE ATTENDED GROUPS. HE COMPLAINED ABOUT HIS SORE BOTTOM. HE WAS LAYED DOWN THIS MORNING AND LAYED DOWN ON HIS SIDE. HE WAS CLEANED UP AND SILVADINE CREAM TO HIS BOTTOM. A PILLOW WAS APPLIED TO HIS BACK SO HE COULD NOT ROLL BACK TO HIS BACK. HE WAS EVALUATED BY [facility] FOR PT. TO LEAVE HERE AND GO THERE TOMORROW. HIS SON WAS HERE AND AGAIN RAISED THE FACT THAT HIS FATHERS GLASSES ARE MISSING. STAFF ARE CONTINUING TO SEARCH FOR THESE GLASSES. PT. ATE AT [facility] 1/2 OF HIS MEALS TODAY.
[2018-09-09 19:25] VITALS: BP 122/61
[2018-09-10 00:15] VITALS: BP 122/61
--- NOTE | 2018-09-10 02:40 | NUR ---
PT OUT WITH PEERS AT [facility]. HAD FRUIT CUP FOR HS SNACK. ASSISTED TO ROOM. SILVADENE TO BOTTOM PER ORDER. ENCOURAGED TO [facility] POSITIONS AND TRY TO STAY OFF OF BOTTOM. SLEEPING COMFORTABLY AT THIS TIME.
--- NOTE | 2018-09-10 04:49 | NUR ---
SLEPT VERY WELL THROUGH THE NIGHT. INCONTINENT X1 TONIGHT. PAD AND BED CLOTHING CHANGED.
--- NOTE | 2018-09-10 08:30 | NUR ---
CLIENT HELPED TO DINNING ROOM, UP WITH WALKER AND GAIT BELT, RETROGRADE BACK. ABLE TO EAT BREAKFAST ON OWN, NOT BEING FEED. FLAT AFFECT. NOT ENGAGING STAFF.
[2018-09-10 08:32] VITALS: BP 110/64
[2018-09-10] MEDS ORDERED: SSD25 GM TOP (08:49)
[2018-09-10] MEDS ORDERED: CLOPIDOGREL75 MG PO (08:49)
[2018-09-10] MEDS ORDERED: TRAZODONE HCL50 MG PO (08:49)
[2018-09-10] MEDS ORDERED: REMERON15 MG PO (08:49)
[2018-09-10] MEDS ORDERED: ZYPREXA 5 MG TAB5 M1 PO ×2 (08:49)
--- NOTE | 2018-09-10 10:28 | NUR ---
Patient Name: CAIT BAKER Admission Date: 08/28/18 DISCHARGE PLAN: Pt will be discharged to SNF. Care Assessment: Pt was assessed pt Dr. Rodriguez, and evaluated by hospitalist who feels that pe will be appropriate for SNF for Rehab services. Level II Assessment: None Transportation: Pt will be transported by [facility] transportation. Special Instructions/Notes: Pt will need rehab services. DISCHARGE TO FACILITY: Group Home facility Facility: [facility] Address: [address] [place] [address] Contact Name: Sara PCP: Facility doctor Psychiatrist: Facility psychiatrist
--- NOTE | 2018-09-10 12:54 | NUR ---
GAVE REPORT TO WALLACE AT [facility]. CLIENT SUPPOSED TO DISCHARGE TO [facility] TODAY AT 1 PM.
--- NOTE | 2018-09-10 13:55 | NUR ---
SITTING IN DINNING ROOM WAITING FOR RIDE TO [facility].
--- NOTE | 2018-09-10 14:38 | NUR ---
Pt was sleep, an unable to participate in group.
--- NOTE | 2018-09-10 17:03 | NUR ---
CLIENT LEFT VIA W/C VAN. CLIENT ASSISTED X2 TO W/C.
--- NOTE | 2018-09-11 21:04 | D ---
[facility] [place] [address] DISCHARGE SUMMARY Name: CAIT BAKER Room #: 526B-B [facility] IN M.R.#: [id number] Admission: 08/28/18 ������������������ Attend Phys: Espinoza Rodriguez DO Discharge: 09/10/18 ������������������ Date of : 32 Report #: [id number] THIS REPORT FOR: //name// CC: Espinoza Rodriguez Jaida Raymundo DATE OF SERVICE: 09/10/2018 INPATIENT PSYCHIATRIC DISCHARGE SUMMARY ATTENDING PHYSICIAN: Espinoza Rodriguez DO. COUNTY LIBRARY DIRECTOR AT THE TIME OF DISCHARGE: Mario Maddox M.D. DISCHARGE DIAGNOSES: Are as follows: Major depressive disorder, single episode, severe with psychotic features, some improvement; cognitive impairment, unspecified; retropulsive gait and history of being undernourished as well. DISCHARGE PLAN: The patient is being discharged to the [facility] for a 2-week course of rehabilitation given weakness, deconditioning and gait disturbance including marked retropulsive gait and with some failure to thrive associated with his major depressive episode. DIET: Regular. DISCHARGE MEDICATIONS: Are as follows: Plavix 75 mg oral daily. Mirtazapine 45 mg at bedtime, antidepressant and appetite stimulant. This has been titrated up from 15 mg daily. Trazodone 50 mg at bedtime as needed for sleep. Olanzapine 7.5 mg at bedtime and 2.5 mg in the morning as an adjunct to the antidepressant for treatment of depression and also for treatment of psychotic features including nihilism. Silver sulfadiazine 1 gram apply topically twice a day to his sacral region for skin breakdown. He should maintain a dry dressing with daily skin checks. The patient's primary care followup and mental health followup [facility] be at the [facility] facility. I have recommended a 1-week followup for both. I did advise the family of further psychiatric hospitalization. If it was sought, I would recommend it be at a facility that has both the Geriatric Psych Unit and electroconvulsive therapy. On the [place] side, [facility] currently accepts those requirements. REASON FOR ADMISSION: As follows, an 88-year-old male who resides in [place], [place], was roughly 3-4 days post-discharge from a skilled stay at [facility]. The patient had regressed in terms of functional level, refusing to eat, appeared more depressed. He was brought to the [facility] and referred for psychiatric admission. Complicating things is his being [facility] [address] [place] [address] DISCHARGE SUMMARY Name: CAIT BAKER Room #: 526B-B [facility]#: [id number] Admission: 08/28/18 ������������������ Attend Phys: Espinoza Rodriguez, Discharge: 09/10/18 ������������������ Date of : 32 Report #: [id number] in a nursing facility for deconditioning and Alzheimers diagnosis. HOSPITAL COURSE: The patient was admitted to the Geriatric Psychiatry Unit. Initially, I started him on sertraline 25 mg daily and Ritalin 5 mg daily. I let this run up 3-4 days course. He was not making improvement. His DPOA was enacted. The son was not happy with his progress. So I switched to mirtazapine and olanzapine combination. The patient's mood did modestly brighten. He initially was not feeding himself and then he began to feed himself by the second half of the hospitalization. We had some delay in getting him situated as [facility], but upon reconsideration, accepted him. He was not making any suicidal attempts or gestures during the hospitalization. He was still frequently sitting alone and maintained reasonable orientation during the hospital course. His family was counseled that ambiguous messages or difficult to achieve expectations would not be helpful to the patient. VITAL SIGNS: On the day of discharge are as follows: Temperature 36.3, pulse 87, respirations 17 and BP 110/64. LABORATORY DATA: Lab work on this admission, on 08/27/2018, CBC, H and H 12.2 and 36.7, white count 6.1 and platelet count 208,000. Additional laboratories, on 08/31/2018, sodium 139, potassium 4.1, chloride 103, bicarbonate 29, BUN 36, creatinine 1.1, estimated GFR 63, glucose 104 and calcium 9.4. Troponin less than 0.06. Urinalysis negative for infection. Additional laboratories done. TSH normal at 2.299, folate 37.0, vitamin B12 of 544. Lipase going back to June was 377. There are some June labs; we would not go over because that was another concern. Imaging, this admission was largely not done. Imaging had been done looking for malignancy in 06/2018 at [facility], including a brain MRI and MRA, with unremarkable MRA of the brain. No intracranial arterial stenosis, aneurysm or evidence of AV malformation. PROGNOSIS: Prognosis for this patient was guarded given advanced age, significant depression. MENTAL STATUS EXAMINATION: Well-developed, thin male, appearing frail. Attention intact, concentration fair. Speech soft, difficult to hear. Thought process linear and goal directed. Thought content, poverty of thought. No overt psychomotor agitation. No overt psychomotor retardation. Denied auditory, visual or tactile hallucinations. Denied suicidal intent or plans. No hopelessness, no helplessness. Denied homicidal intent or plan. Memory not [facility] [address] [place] [address] DISCHARGE SUMMARY Name: CAIT BAKER Room #: 526B-B [facility] IN M.R.#: [id number] Admission: 08/28/18 ������������������ Attend Phys: Espinoza Rodriguez DO Discharge: 09/10/18 ������������������ Date of : 32 Report #: [id number] formally tested on the day of discharge. Insight limited. Judgment fair to limited. Fund of knowledge at least average. ��������������������������������������������� <ELECTRONICALLY SIGNED> ���������������������������������������� By: Espinoza Rodriguez DO ��������������������������������������������� 09/11/18 2104 [id number] Espinoza Rodriguez DO /nt
== END 2018-09-10 17:04 | DRG 885 ==
LOC: ER 20:17 → EROBS 21:46 → 4E 21:46 → SBH 08-28 08:00
PROVIDERS: Emergency Medicine; Nurse Practitioner Family; ADMIT Psychiatry & Neurology Psychiatry
DX: F32.3 Major depressive disorder, single episode, severe with psychotic features (principal); E43 Unspecified severe protein-calorie malnutrition; Z68.1 Body mass index [BMI] 19.9 or less, adult; R62.7 Adult failure to thrive; I25.10 Atherosclerotic heart disease of native coronary artery without angina pectoris; R26.9 Unspecified abnormalities of gait and mobility; F03.90 Unspecified dementia, unspecified severity, without behavioral disturbance, psychotic disturbance, mood disturbance, and anxiety; D63.8 Anemia in other chronic diseases classified elsewhere; I25.2 Old myocardial infarction; Z95.5 Presence of coronary angioplasty implant and graft; Z87.891 Personal history of nicotine dependence; Z79.02 Long term (current) use of antithrombotics/antiplatelets; Z79.899 Other long term (current) drug therapy; Z82.49 Family history of ischemic heart disease and other diseases of the circulatory system
CPT/HCPCS: 10880